=== PATIENT | male | born 1940 | race Caucasian/White ===

== ENCOUNTER 2018-12-22 12:46 | Emergency (ER) | payer MEDICARE, OTHER ==
--- NOTE | 2018-12-22 13:14 | ERPHSYRPT ---
- History of Present Illness Time Seen by Provider: 12/22/18 13:13 Source: patient, family Exam Limitations: no limitations Physician History: 78 y/o white male presents with dizziness. began a couple of days ago. resolved. returned this am. primarily occurs when pt turns head to the right. denies prior episodes. denies cp, denies soa, denies abd pain. no head injury. no new meds. nausea today. no voiting or diarrhea. Timing/Duration: day(s) (a couple of days) Severity: mild Deficits: no difficulties Baseline/Normal Cognition: alert oriented x 3 Current Cognition: alert oriented x 3 Baseline Gait: walks w/o assistance Associated Symptoms: nausea, No vomiting, No numbness/tingling in legs/feet, No ringing in ears, No seizures Allergies/Adverse Reactions: No Known Drug Allergies Allergy (Verified 12/22/18 15:00) Home Medications: Allopurinol 400 mg PO DAILY 04/29/12 [History] Aspirin [Aspir 81] 81 mg PO DAILY 04/29/12 [History] Atenolol/Chlorthalidone [Atenolol-Chlorthal 50-25 Tb] 1 mg PO DAILY 04/29/12 [ History] Atorvastatin Calcium [Lipitor 20MG Tablet] 20 mg PO DAILY 04/29/12 [History] Celecoxib 100 mg [celeBREX 100 MG] 200 mg PO DAILY 04/29/12 [History] Fenofibrate,Micronized 145 mg* [Tricor 145 MG] 145 mg PO DAILY 04/29/12 [History ] Multivitamin [Daily Vitamin] 1 each PO DAILY 04/29/12 [History] Niacin 500 mg [Niaspan 500 mg] 500 mg PO QID 04/29/12 [History] [place]-3 Fatty Acids/Fish Oil [Fish Oil 1,000 mg Capsule] 2 cap PO DAILY [History] Potassium Chloride 20 Meq [Klor-Con 20 MEQ] 20 meq PO DAILY 04/29/12 [History] Tamsulosin HCl 0.4 mg [Flomax 0.4 MG] 0.4 mg PO DAILY 04/29/12 [History] Finasteride 5 mg PO DAILY 12/22/18 [History] Glyburide/Metformin HCl [Glyburide-Metformin 2.5-500 mg] 1 each PO TID 12/22/18 [History] Hx Influenza Vaccination/Date Given: No (NA AT THIS TIME) Hx Pneumococcal Vaccination/Date Given: Yes (2009) - Review of Systems Constitutional: No Symptoms Eyes: No Symptoms Ears, Nose, & Throat: No Symptoms Respiratory: No Symptoms Cardiac: No Symptoms Abdominal/Gastrointestinal: Nausea Genitourinary Symptoms: No Symptoms Musculoskeletal: No Symptoms Skin: No Symptoms Neurological: Dizziness Psychological: No Symptoms Endocrine: No Symptoms Hematologic/Lymphatic: No Symptoms Immunological/Allergic: No Symptoms All Other Systems: Reviewed and Negative - Past Medical History Pertinent Past Medical History: Yes Neurological History: No Pertinent History ENT History: Glaucoma Cardiac History: Hypertension Respiratory History: No Pertinent History Endocrine Medical History: No Pertinent History Musculoskeletal History: Arthritis, Osteoarthritis GI Medical History: No Pertinent History History: Other Psycho-Social History: No Pertinent History Male Reproductive Disorders: No Pertinent History Other Medical History: HX LAMINECTOMY. GOUT - Past Surgical History Past Surgical History: Yes Neuro Surgical History: No Pertinent History Cardiac: No Pertinent History Respiratory: No Pertinent History Gastrointestinal: No Pertinent History Genitourinary: No Pertinent History Musculoskeletal: No Pertinent History Male Surgical History: No Pertinent History - Social History Smoking Status: Former smoker How long have you smoked: 40 YR Exposure to second hand smoke: Yes Drug Use: none - Nursing Vital Signs Nursing Vital Signs: Initial Vital Signs Temperature 97.5 F 12/22/18 12:59 Pulse Rate 55 L 12/22/18 12:59 Respiratory Rate 17 12/22/18 12:59 Blood Pressure 152/84 12/22/18 12:59 O2 Sat by Pulse Oximetry 98 12/22/18 12:59 Pain Scale Pain Intensity 0 - Adonis Coma Scale Best Eye Response ([place]): (4) open spontaneously Best Verbal Response ([place]onis): (5) oriented Best Motor Response ([place]): (6) obeys commands [place] Total: 15 - Physical Exam General Appearance: no apparent distress, alert, anxiety Eye Exam: bilateral eye: normal inspection, PERRL, EOMI Ears, Nose, Throat Exam: normal ENT inspection, TMs normal, pharynx normal, moist mucous membranes, tonsillar exudate Neck Exam: normal inspection, non-tender, supple Respiratory: normal breath sounds, lungs clear, airway intact, No chest tenderness, No respiratory distress, No accessory muscle use Cardiovascular: regular rate/rhythm, normal heart sounds, normal peripheral pulses Gastrointestinal: soft, normal bowel sounds, No tenderness, No guarding Rectal Exam: not done Back Exam: normal inspection, normal range of motion, No CVA tenderness, No vertebral tenderness Extremity Exam: normal inspection, normal range of motion, pelvis stable Mental Status: alert, 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 x 3, 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 Exam: normal hearing, normal speech, PERRL, tongue midline Coordination/Gait: normal finger to nose, normal gait, normal cerebellar function Motor/Sensory: no motor deficit, no sensory deficit, no pronator drift Skin Exam: normal color, warm, dry SpO2 Interpretation: normal O2 Delivery: Room Air - Course Nursing assessment & vital signs reviewed: Yes EKG Interpreted by Me: RATE (55), Sinus Rhythm, NORMAL AXIS, NORMAL INTERVALS, NORMAL QRS, Other (no comparison ekg) Ordered Tests: Active Orders 24 hr Category Date Time Status Clean Catch Urine Specimen STAT Care 12/22/18 13:25 Active EKG-ER Only STAT Care 12/22/18 13:25 Active IV Insertion STAT Care 12/22/18 13:25 Active HEAD WITHOUT CONTRAST [CT] Stat Exams 12/22/18 13:26 Completed CBC W DIFF Stat Lab 12/22/18 13:55 Completed CMP Stat Lab 12/22/18 13:55 Completed CULTURE,URINE Stat Lab 12/22/18 14:30 Received UA W/RFX UR CULTURE Stat Lab 12/22/18 14:30 Completed Medication Summary Generic Name Dose Route Start Last Admin Trade Name Freq PRN Reason Stop Dose Admin Ceftriaxone Sodium/Dextrose 1 g in 50 mls @ 100 mls/hr 12/22/18 15:11 Rocephin 1 Gm-D5w 50 Ml Bag IV 12/22/18 15:40 STAT STA Discontinued Medications Generic Name Dose Route Start Last Admin Trade Name Freq PRN Reason Stop Dose Admin Sodium Chloride 1,000 mls @ 999 mls/hr 12/22/18 13:25 12/22/18 14:19 Sodium Chloride 0.9% 1000 Ml IV 12/22/18 14:25 999 mls/hr .Q1H1M STA Administration Sodium Chloride Confirm 12/22/18 14:16 Sodium Chloride 0.9% 1000 Ml Administered 12/22/18 14:17 Dose 1,000 mls @ ud .ROUTE .STK-MED ONE Meclizine HCl 25 mg 12/22/18 15:11 Antivert 25 Mg PO 12/22/18 15:12 STAT ONE Promethazine HCl 25 mg 12/22/18 13:25 12/22/18 14:19 Phenergan 25 Mg Inj IM 12/22/18 13:26 25 mg STAT ONE Administration Promethazine HCl Confirm 12/22/18 14:16 Phenergan 25 Mg Inj Administered 12/22/18 14:17 Dose 25 mg .ROUTE .[facility]-MED ONE Lab/Rad Data: Laboratory Result Diagrams 12/22/18 13:55 12/22/18 13:55 Laboratory Results 12/22/18 12/22/18 12/22/18 Range/Units 14:30 13:55 13:55 WBC 6.9 (4.0-10.5) K/mm3 RBC 4.14 (4.1-5.6) M/mm3 Hgb 13.3 (12.5-18.0) gm/dl Hct 40.8 L (42-50) % MCV 98.6 (78-100) fl MCH 32.1 H (26-32) pg MCHC 32.6 (32-36) g/dl RDW 14.0 (11.5-14.0) % Plt Count 223 (150-450) K/mm3 MPV 10.5 H (6-9.5) fl Gran % 72.5 H (36.0-66.0) % Eos # (Auto) 0.20 (0-0.5) Absolute Lymphs (auto) 1.35 (1.0-4.6) Absolute Monos (auto) 0.33 (0.0-1.3) Lymphocytes % 19.5 L (24.0-44.0) % Monocytes % 4.8 (0.0-12.0) % Eosinophils % 2.9 (0.00-5.0) % Basophils % 0.3 (0.0-0.4) % Absolute Granulocytes 5.03 (1.4-6.9) Basophils # 0.02 (0-0.4) Sodium 138 (137-145) mmol/L Potassium 4.1 (3.5-5.1) mmol/L Chloride 105 (98-107) mmol/L Carbon Dioxide 23 (22-30) mmol/L Anion Gap 13.9 (5-15) MEQ/L BUN 38 H (9-20) mg/dL Creatinine 1.74 H (0.66-1.25) mg/dL Estimated GFR 40.6 ML/MIN Glucose 215 H (74-106) mg/dL Calcium 10.8 H (8.4-10.2) mg/dL Total Bilirubin 0.70 (0.2-1.3) mg/dL AST 29 (17-59) U/L ALT 28 (0-50) U/L Alkaline Phosphatase 62 (38-126) U/L Serum Total Protein 8.1 (6.3-8.2) g/dL Albumin 4.5 (3.5-5.0) g/dL Urine Color YELLOW (YELLOW) Urine Appearance SLIGHTLY CLOUDY (CLEAR) Urine pH 6.0 (5-6) Ur Specific [place] 1.013 (1.005-1.025) Urine Protein NEGATIVE (Negative) Urine Ketones NEGATIVE (NEGATIVE) Urine Blood NEGATIVE (0-5) [place]/ul Urine Nitrite POSITIVE (NEGATIVE) Urine Bilirubin NEGATIVE (NEGATIVE) Urine Urobilinogen NEGATIVE (0-1) mg/dL Ur Leukocyte Esterase SMALL (NEGATIVE) Urine WBC (Auto) 16-25 (0-5) /HPF Urine RBC (Auto) NONE (0-2) /HPF U Epithel Cells (Auto) NONE (FEW) /HPF Urine Bacteria (Auto) MODERATE (NEGATIVE) /HPF Urine Culture Reflexed YES (NO) Urine Glucose NEGATIVE (NEGATIVE) mg/dL - Progress Progress: improved Progress Note: 12/22/18 14:15 ct head-no intracranial pathology Counseled pt/family regarding: lab results, diagnosis, need for follow-up, rad results - Departure Time of Disposition: 15:12 Departure Disposition: Home Clinical Impression: Dizziness, UTI (urinary tract infection) Condition: Stable Critical Care Time: No Referrals: GARY VITALE MD [Primary Care Provider] - Additional Instructions: drink plenty of fluids. follow up with primary doctor for further management Prescriptions: Ciprofloxacin [Cipro 500 MG] 500 mg PO BID #14 tablet Meclizine HCl 25 mg [Antivert 25 mg] 25 mg PO Q8H PRN #10 tablet PRN Reason: Dizziness
[2018-12-22] MEDS ORDERED: Sodium Chloride 0.9% 1000 ML 1,000 ML IV STA (13:25)
[2018-12-22] MEDS ORDERED: Phenergan 25 MG INJ IM ONE (13:25)
--- NOTE | 2018-12-22 13:54 | XRAY ---
Indication: Dizziness. Multiple contiguous axial images obtained through the head without contrast. Comparison: None Age-appropriate global atrophy. No acute intracranial hemorrhage, abnormal extra-axial fluid collection, or mass effect. Fourth ventricle is midline without hydrocephalus. Dangelo-white matter differentiation preserved. Bony calvarium intact. Partially visualized 2.2 cm right maxillary sinus polyp versus retention cyst. Remaining visualized paranasal sinuses and mastoid air cells are clear. Impression: Normal CT head without contrast exam with incidental right maxillary sinus polyp/retention cyst. CTDI 71.01
[2018-12-22 14:02] LABS: BASOPHIL % 0.3 % (0.0-0.4); Basophil (Absolute #) 0.02 (0-0.4); Eosinophil % 2.9 % (0.00-5.0); Granulocyte Absolute (ANC) 5.03 (1.4-6.9); Granulocytes % 72.5 % (36.0-66.0); Hematocrit 40.8 % (42-50); Hemoglobin 13.3 gm/dl (12.5-18.0); Lymphocyte (Absolute #) 1.35 (1.0-4.6); Lymphocytes % 19.5 % (24.0-44.0); Mean Cell Volume 98.6 fl (78-100); Mean Corpuscular Hemoglobin 32.1 pg (26-32); Mean Corpuscular Hgb Concent. 32.6 g/dl (32-36); Mean Platelet Volume 10.5 fl (6-9.5); Monocyte (Absolute #) 0.33 (0.0-1.3); Monocytes % 4.8 % (0.0-12.0); Platelet Count 223 K/mm3 (150-450); Red Blood Count 4.14 M/mm3 (4.1-5.6); White Blood Count 6.9 K/mm3 (4.0-10.5)
[2018-12-22 14:14] LABS: ALBUMIN 4.5 g/dL (3.5-5.0); ANION GAP 13.9 MEQ/L (5-15); BILIRUBIN,TOTAL 0.7 mg/dL (0.2-1.3); Calcium 10.8 mg/dL (8.4-10.2); Creatinine 1 1.74 mg/dL (0.66-1.25); Potassium 4.1 mmol/L (3.5-5.1); Total Protein 8.1 g/dL (6.3-8.2)
[2018-12-22] MEDS ORDERED: Sodium Chloride 0.9% 1000 ML 1,000 ML ONE (14:16)
[2018-12-22] MEDS ORDERED: Phenergan 25 MG INJ ONE (14:16)
[2018-12-22 14:56] LABS: Appearance SLIGHTLY CLOUDY (CLEAR); Bacteria MODERATE /HPF (NEGATIVE); Bilirubin NEGATIVE (NEGATIVE); Blood NEGATIVE Ery/ul (0-5); Glucose NEGATIVE (NEGATIVE); Ketones NEGATIVE (NEGATIVE); Leukocyte Esterase SMALL (NEGATIVE); Nitrite POSITIVE (NEGATIVE); Protein,Urine Dip NEGATIVE (Negative); Specific Gravity 1.013 (1.005-1.025); Urobilinogen NEGATIVE mg/dL (0-1)
[2018-12-22] MEDS ORDERED: ANTIVERT 25 MG PO ONE (15:11)
[2018-12-22] MEDS ORDERED: ROCEPHIN 1 Gm-D5w 50 ml Bag** 1 G/50 ML IVPB IV STA (15:11)
[2018-12-22 15:13] VITALS: BP 136/73; O2SAT 97
[2018-12-22] MEDS ORDERED: ROCEPHIN 1 Gm-D5w 50 ml Bag** 1 G/50 ML IVPB IV ONE (15:14)
[2018-12-22] MEDS ORDERED: ANTIVERT 25 MG ONE (15:14)
[2018-12-22 16:31] VITALS: PULSE 70
== END 2018-12-22 15:45 | disposition home or self-care (01) ==
LOC: ED 12:46
DX: R42 Dizziness and giddiness (principal); N39.0 Urinary tract infection, site not specified; I10 Essential (primary) hypertension; M19.90 Unspecified osteoarthritis, unspecified site; Z79.899 Other long term (current) drug therapy; M10.9 Gout, unspecified
CPT/HCPCS: 36000; 36415; 70450; 80053; 81001; 85025; 87077; 87086; 87186; 93005; 96365; 96372; 99284; J0696; J2550; A9270-GY

== ENCOUNTER 2019-09-07 10:30 | Emergency (ER) | payer MEDICARE, OTHER ==
[2019-09-07 10:47] VITALS: O2SAT 97
[2019-09-07] MEDS ORDERED: Sodium Chloride 0.9% 1000 ML 1,000 ML IV STA (10:59)
--- NOTE | 2019-09-07 11:03 | ERPHSYRPT ---
- History of Present Illness Time Seen by Provider: 09/07/19 10:45 Source: patient Exam Limitations: no limitations Patient Subjective Stated Complaint: lightheaded, dizzy, feels heart skipping beats Triage Nursing Assessment: Pt walked into the ER, hypertensive, denies pain, hx of dizziness and lightheadedness, no difficulty with strength, A&O, doesn't appear to be in any distress Physician History: the patient is a 71-year-old male who presents with a chief complaint dizziness. Onset was last night. He states he had to go to the bathroom and when he bent over he felt lightheaded and felt as if the room were spinning. While in bed, the dizziness was precipitated by turning over in bed and abated with lying still. He felt the same way specifically whenever he turned his head to the right. His visit here he remains still and I get from a seating to standing position as well his symptoms will completely resolve. Of note, the patient endorses having a similar episode this past summer for which he was seen in the emergency department and diagnosed with vertigo and discharged with a prescription for meclizine. He has secondary complaints feeling his heart "skips a beat" something going on for the past 2-3 weeks. He denies headache, changes in his visual acuity, nausea, vomiting, recent URI/ sinus congestion, chest pain, shortness of breath, syncope or having any recent changes in his blood pressure medications. Timing/Duration: intermittent, other (last night) Modifying Factors: Improves With: immobilization, movement Associated Symptoms: No nausea, No vomiting, No abdominal pain, No shortness of breath, No headaches, No syncope Allergies/Adverse Reactions: No Known Drug Allergies Allergy (Verified 09/07/19 10:51) Home Medications: Allopurinol 400 mg PO DAILY 04/29/12 [History] Aspirin [Aspir 81] 81 mg PO DAILY 04/29/12 [History] Atenolol/Chlorthalidone [Atenolol-Chlorthal 50-25 Tb] 1 mg PO DAILY 04/29/12 [ History] Atorvastatin Calcium [Lipitor 20MG Tablet] 20 mg PO DAILY 04/29/12 [History] Celecoxib 100 mg [celeBREX 100 MG] 200 mg PO DAILY 04/29/12 [History] Fenofibrate,Micronized 145 mg* [Tricor 145 MG] 145 mg PO DAILY 04/29/12 [History ] Multivitamin [Daily Vitamin] 1 each PO DAILY 04/29/12 [History] Niacin 500 mg [Niaspan 500 mg] 500 mg PO QID 04/29/12 [History] [place]-3 Fatty Acids/Fish Oil [Fish Oil 1,000 mg Capsule] 2 cap PO DAILY [History] Potassium Chloride 20 Meq [Klor-Con 20 MEQ] 20 meq PO DAILY 04/29/12 [History] Tamsulosin HCl 0.4 mg [Flomax 0.4 MG] 0.4 mg PO DAILY 04/29/12 [History] Finasteride 5 mg PO DAILY 12/22/18 [History] Glyburide/Metformin HCl [Glyburide-Metformin 2.5-500 mg] 1 each PO TID 12/22/18 [History] Hx Tetanus, Diphtheria Vaccination/Date Given: No Hx Influenza Vaccination/Date Given: No (NA AT THIS TIME) Hx Pneumococcal Vaccination/Date Given: Yes (2009) - Review of Systems Constitutional: No Fever, No Chills, No Weakness, No Weight Loss Eyes: No No Symptoms, No Discharge, No Eye Pain, No Eye Redness, No Foreign Body Sensation Ears, Nose, & Throat: No Ear Pain, No Ear Discharge, No Hearing Changes, No Tinnitus Respiratory: No Symptoms, No Cough, No Cyanosis, No Dyspnea Cardiac: Palpitations, No Chest Pain, No Syncope, No Orthopnea, No PND Abdominal/Gastrointestinal: No Symptoms Skin: No Symptoms Neurological: Dizziness, Vertigo, No Focal Weakness, No Gait Changes, No Headache, No Irritability, No Parasthesia, No Sensory Changes, No Speech Changes , No Tremors Psychological: No Symptoms All Other Systems: Reviewed and Negative - Past Medical History Pertinent Past Medical History: Yes Neurological History: No Pertinent History ENT History: Glaucoma Cardiac History: Hypertension Respiratory History: No Pertinent History Endocrine Medical History: No Pertinent History Musculoskeletal History: Arthritis, Osteoarthritis GI Medical History: No Pertinent History History: Other Psycho-Social History: No Pertinent History Male Reproductive Disorders: No Pertinent History Other Medical History: HX LAMINECTOMY. 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 - Social History Smoking Status: Former smoker How long have you smoked: 40 YR Exposure to second hand smoke: No Drug Use: none Patient Lives Alone: No - Nursing Vital Signs Nursing Vital Signs: Initial Vital Signs Temperature 97.5 F 09/07/19 10:37 Pulse Rate 61 09/07/19 10:37 Blood Pressure 151/88 09/07/19 10:37 O2 Sat by Pulse Oximetry 97 09/07/19 10:37 Pain Scale Pain Intensity 0 - Physical Exam General Appearance: no apparent distress, alert Eye Exam: PERRL/EOMI, eyes nml inspection, No scleral icterus, No pale conjunctivae, No photophobia, No EOM palsy/anisocoria Ears, Nose, Throat Exam: normal ENT inspection, pharynx normal, moist mucous membranes, No TM abnormal (R), No TM abnormal (L), No pharyngeal erythema Neck Exam: non-tender, supple, other (No vertebral bruit), No carotid bruit, No JVD, No limited range of motion, No midline tenderness Respiratory Exam: normal breath sounds, lungs clear, airway intact, No chest tenderness, No respiratory distress Cardiovascular Exam: regular rate/rhythm, normal heart sounds, normal peripheral pulses, capillary refill <2 sec Gastrointestinal/Abdomen Exam: soft, normal bowel sounds, No tenderness, No distention, No mass Male Genitalia Exam: other (Deferred) Rectal Exam: deferred Back Exam: normal inspection Extremity Exam: normal inspection Neurologic Exam: alert, oriented x 3, cooperative, 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 as tested, normal mood/affect, nml cerebellar function, sensation nml, other (No nystagmus) , No motor deficits, No sensory deficit, No disoriented, No confusion, No agitation, No motor weakness, No facial droop, No slurred speech, No aphasia, No EOM palsy Skin Exam: normal color, warm, dry, No rash, No petechiae, No jaundice, No cyanosis, No jaundice SpO2 Interpretation: normal SpO2: 97 O2 Delivery: Room Air - Course Nursing assessment & vital signs reviewed: Yes EKG Interpreted by Me: RATE, Sinus Rhythm, Sinus [place], NORMAL QRS (QT/QTc 424/ 420 ms), NORMAL ST-T, Other Ordered Tests: Medication Summary Discontinued Medications Generic Name Dose Route Start Last Admin Trade Name Lois PRN Reason Stop Dose Admin Sodium Chloride 1,000 mls @ 999 mls/hr 09/07/19 10:59 09/07/19 13:20 Sodium Chloride 0.9% 1000 Ml IV 09/07/19 11:59 Infused .Q1H1M STA Infusion Sodium Chloride Confirm 09/07/19 11:17 Sodium Chloride 0.9% 1000 Ml Administered 09/07/19 11:18 Dose 1,000 mls @ ud .ROUTE .K-MED ONE Lab/Rad Data: Laboratory Result Diagrams 09/07/19 10:59 09/07/19 11:30 Laboratory Results 09/07/19 09/07/19 Range/Units 11:30 10:59 WBC 6.1 (4.0-10.5) K/mm3 RBC 3.78 L (4.1-5.6) M/mm3 Hgb 12.8 (12.5-18.0) gm/dl Hct 38.1 L (42-50) % MCV 100.8 H (78-100) fl MCH 33.9 H (26-32) pg MCHC 33.6 (32-36) g/dl RDW 13.8 (11.5-14.0) % Plt Count 209 (150-450) K/mm3 MPV 11.0 H (6-9.5) fl Gran % 66.6 H (36.0-66.0) % Eos # (Auto) 0.19 (0-0.5) Absolute Lymphs (auto) 1.33 (1.0-4.6) Absolute Monos (auto) 0.50 (0.0-1.3) Lymphocytes % 21.8 L (24.0-44.0) % Monocytes % 8.2 (0.0-12.0) % Eosinophils % 3.1 (0.00-5.0) % Basophils % 0.3 (0.0-0.4) % Absolute Granulocytes 4.05 (1.4-6.9) Basophils # 0.02 (0-0.4) Sodium 143 (137-145) mmol/L Potassium 4.1 (3.5-5.1) mmol/L Chloride 110 H (98-107) mmol/L Carbon Dioxide 24 (22-30) mmol/L Anion Gap 13.8 (5-15) MEQ/L BUN 32 H (9-20) mg/dL Creatinine 1.51 H (0.66-1.25) mg/dL Estimated GFR 47.7 ML/MIN Glucose 179 H (74-106) mg/dL Calcium 10.6 H (8.4-10.2) mg/dL Troponin I < 0.012 (0.000-0.034) ng/mL - Progress Progress: improved Progress Note: 09/07/19 12:08 I reviewed the patient's EMR and appears he had a head CT without contrast dated November 2018 less than normal limits with no evidence of intracranial hemorrhage, mass or CVA. His kidney function currently is his baseline kidney function which reflects his baseline CKD, in addition to his serum calcium is being above high normal. He does have evidence of an elevated MCV but there is no anemia. 09/07/19 12:[address] Vitale' office and attempted to speak with him about the patient' s CKD and what appears to be mild hypercalcemia, but he was out of the office today. I did manage to schedule a follow-up appointment for him to be evaluated on 09/09/19. Discussed with : Rashad (Discussed with Dr Vitale' nurse/clinic) Counseled pt/family regarding: lab results, diagnosis, need for follow-up - Departure Departure Disposition: Home Clinical Impression: Dizziness, PVC (premature ventricular contraction), CKD (chronic kidney disease ), Hypercalcemia Condition: Stable Critical Care Time: No Referrals: GARY VITALE MD [Primary Care Provider] - Instructions: Dizziness, Nonvertigo, (DC) Additional Instructions: Please follow-up with Dr. Vitale on 09/09/19 at 1:30 pm. Plan of Treatment: Nontoxic in appearanc. Dizziness seems peripheral and currently a low suspicion for CVA, TIA, and suspect a vestibular neuritis or BPPV given his symptoms started while he was in bed/getting out of bed but patient does not have nystagmus which argues against BPPV. Labs, EKG, and EMR reviewed. I'll have the patient f/u with his PCP, specifically because his serum calcium is mildly elevated to have PCP follow-up on PTH or r/o multiple myeloma, etc. if he thinks this is necessary. Prescriptions: Meclizine HCl 25 mg [Antivert 25 mg] 25 mg PO Q6-8HPRN PRN #30 tablet PRN Reason: Dizziness
[2019-09-07] MEDS ORDERED: Sodium Chloride 0.9% 1000 ML 1,000 ML ONE (11:17)
[2019-09-07 11:33] LABS: Absolute Neutrophil Ct (ANC) 4.05 (1.4-6.9); BASOPHIL % 0.3 % (0.0-0.4); Basophil (Absolute #) 0.02 (0-0.4); Eosinophil % 3.1 % (0.00-5.0); Eosinophil (Absolute #) 0.19 (0-0.5); Hematocrit 38.1 % (42-50); Hemoglobin 12.8 gm/dl (12.5-18.0); Lymphocyte (Absolute #) 1.33 (1.0-4.6); Lymphocytes % 21.8 % (24.0-44.0); Mean Cell Volume 100.8 fl (78-100); Mean Corpuscular Hemoglobin 33.9 pg (26-32); Mean Corpuscular Hgb Concent. 33.6 g/dl (32-36); Monocytes % 8.2 % (0.0-12.0); Neutrophil % 66.6 % (36.0-66.0); Platelet Count 209 K/mm3 (150-450); Red Blood Count 3.78 M/mm3 (4.1-5.6); Red Cell Distribution Width 13.8 % (11.5-14.0); White Blood Count 6.1 K/mm3 (4.0-10.5)
[2019-09-07 11:57] LABS: ANION GAP 13.8 MEQ/L (5-15); BLOOD UREA NITROGEN 32 mg/dL (9-20); CHLORIDE 110 mmol/L (98-107); Calcium 10.6 mg/dL (8.4-10.2); Carbon Dioxide 24 mmol/L (22-30); Creatinine 1 1.51 mg/dL (0.66-1.25); Glucose 179 mg/dL (74-106); Potassium 4.1 mmol/L (3.5-5.1); SODIUM 143 mmol/L (137-145); TROPONIN < 0.012 ng/mL (0.000-0.034)
[2019-09-07 12:05] VITALS: BP 150/91; PULSE 66
== END 2019-09-07 13:21 | disposition home or self-care (01) ==
LOC: ED 10:30
DX: R42 Dizziness and giddiness (principal); I49.3 Ventricular premature depolarization; N18.9 Chronic kidney disease, unspecified; E83.52 Hypercalcemia; Z79.899 Other long term (current) drug therapy; I10 Essential (primary) hypertension
CPT/HCPCS: 36415; 80048; 84484; 85025; 93005; 93041; 96360; 99284

== ENCOUNTER 2023-01-13 08:09 | Day surgery (SDC) | payer MEDICARE, OTHER ==
--- NOTE | 2023-01-13 07:53 | HP ---
DATE OF SURGERY: 01/13/2023 HISTORY OF PRESENT ILLNESS: The patient is an 83-year-old with epigastric pain, nausea and vomiting. Ultrasound showed cholelithiasis. He was referred for consideration of cholecystectomy. PAST MEDICAL HISTORY: Gout, osteoarthritis, renal insufficiency, diabetes mellitus type II, benign prostatic hypertrophy, Herpes zoster in the past. He had urinary tract infections in the past. PAST SURGICAL HISTORY: Colonoscopy. MEDICATIONS: Multivitamins, vitamin D3, fish oil, Jardiance, Tamsulosin, finasteride, allopurinol, atenolol, Klor-Con, glyburide/metformin, Fenofibrate, atorvastatin. ALLERGIES: NKDA. FAMILY HISTORY: Diabetes. SOCIAL HISTORY: Former smoking. No alcohol abuse. REVIEW OF SYSTEMS: Fourteen systems reviewed. No chest pain or palpitations. Other systems negative or noncontributory as above and per preadmission questionnaire. PHYSICAL EXAMINATION: Height 6' 2". BMI 30. GENERAL: No acute distress. HEENT: Sclerae nonicteric. Mucous membranes moist. EOMI. NECK: No JVD. CHEST: Equal excursion, nonlabored breathing. CVS: Regular rate and rhythm. ABDOMEN: Soft. No peritoneal signs. EXTREMITIES: No significant edema. NEURO: Alert, oriented, moving extremities symmetrically. PSYCH: Appropriate mood and affect. SKIN: Dry. IMPRESSION: Acute exacerbation chronic cholecystitis, symptomatic cholelithiasis. I feel the patient would benefit from cholecystectomy. He was shown the risk sheet and gallbladder pamphlet explained the procedure in detail including but not limited to bleeding or infection, risk of trocar injury or hernia, risk of bile leak, bile duct injury, retained stone or sludge possibly requiring further procedure either open or ERCP, general risk of anesthesia, deep venous thrombosis, pulmonary embolism, pneumonia, perioperative risk of aches, pains, bloating, constipation and/or loose stools possibly even chronic in nature. He understands and agrees to the planned procedure, will proceed with laparoscopic cholecystectomy with possible open when OR time available.
[~2023-01-13 08:09] MED LIST: Sensorcaine 0.25% 10 ML ONE
[2023-01-13] MEDS ORDERED: Lactated Ringers 1,000 ML IV SCH (08:30)
[2023-01-13] MEDS ORDERED: MEFOXIN 2 GM PREMIX** 2 GM/50 ML ML IV SCH (09:00)
[2023-01-13 09:10] LABS: Hematocrit 42.5 % (42-50); Hemoglobin 13.8 g/dL (12.5-18.0); Mean Cell Volume 100.2 fL (78-100); Mean Corpuscular Hemoglobin 32.5 pg (26-32); Mean Corpuscular Hgb Concent. 32.5 g/dL (32-36); Mean Platelet Volume 10.5 fL (7.5-11.0); Platelet Count 242 x10^3/uL (150-450); Red Blood Count 4.24 x10^6/uL (4.1-5.6); Red Cell Distribution Width 13.6 % (11.5-14.0); White Blood Count 4.7 x10^3/uL (4.0-10.5)
[2023-01-13 09:18] LABS: ANION GAP 12.9 MEQ/L (5-15); BILIRUBIN,TOTAL 0.6 mg/dL (0.2-1.3); Calcium 9.4 mg/dL (8.4-10.2); Creatinine 1 1.66 mg/dL (0.66-1.25); EST GLOMERULAR FILTRATION RATE 42.4 ML/MIN; Potassium 4.1 mmol/L (3.5-5.1); Total Protein 7.3 g/dL (6.3-8.2)
[2023-01-13] MEDS ORDERED: Xylocaine-Mpf 2% 5 Ml Vial ONE (09:58)
[2023-01-13] MEDS ORDERED: SUBLIMAZE 100 MCG/2 ML ONE (09:58)
[2023-01-13] MEDS ORDERED: Zemuron 100 MG/10 ML ONE (09:58)
[2023-01-13] MEDS ORDERED: BRIDION 200MG/2ML IV ONE (09:58)
[2023-01-13] MEDS ORDERED: Decadron 4 MG INJ ONE (09:58)
[2023-01-13] MEDS ORDERED: Zofran 4 MG/2 ML VIAL ONE (09:58)
[2023-01-13] MEDS ORDERED: DIPRIVAN 200 MG/20 ML IV ONE (09:58)
[2023-01-13] MEDS ORDERED: Magnesium Sulfate 1 GM/2 ML VIAL ONE (11:20)
[2023-01-13] MEDS ORDERED: OFIRMEV 100 ML IV ONE (11:20)
[2023-01-13] MEDS ORDERED: Ephedrine Sulfate 50 MG/ML ONE (11:31)
[2023-01-13] MEDS ORDERED: ROBINUL ONE (11:35)
[2023-01-13] MEDS ORDERED: Ketamine HCl 50 MG/ML ONE (11:39)
[2023-01-13 13:27] VITALS: BP 142/65; PULSE 58; O2SAT 92
--- NOTE | 2023-01-13 15:32 | OP ---
SURGERY DATE/TIME: 01/13/2023 1118 PREOPERATIVE DIAGNOSIS: Acute exacerbation of chronic cholecystitis, symptomatic cholelithiasis. POSTOPERATIVE DIAGNOSIS: Acute exacerbation of chronic cholecystitis, symptomatic cholelithiasis. PROCEDURE: Laparoscopic cholecystectomy. SURGEON: Dr. Kulwinder Herman. ANESTHESIA: General. ESTIMATED BLOOD LOSS: Minimal. INDICATIONS: As noted above. Risks and benefits explained in detail but not limited to and consent obtained. DESCRIPTION OF PROCEDURE AND FINDINGS: The patient was taken to the operating room. General anesthesia induced. Abdomen prepped and draped in usual sterile fashion. After official time out and no disagreement with planned procedure, a transverse incision made in the supraumbilical area. Fascia grasped, pulled upward. Veress needle inserted and tested with saline. Pneumoperitoneum accomplished insufflating opening pressure of 0-15. A 5 mm bladeless port and camera were inserted without difficulty followed by two - 5 mm right upper quadrant ports and 11 mm epigastric port. The gallbladder is long and distended. It had some chronic inflammation. Dissected posterior, lateral to anterior fashion slowly and carefully the cystic duct and infundibular junction slowly carefully dissected from posterior lateral to anterior fashion. Slowly and carefully the cystic duct and infundibular area well skeletonized until the critical view was obtained both anteriorly and posteriorly. Once this is accomplished, the cystic artery clipped directly on the gallbladder wall. The cystic duct was clipped at the infundibulum. The gallbladder is slowly and carefully dissected free from its dense attachments to the liver bed clipping additional oozing cystic artery/cystic vein as necessary directly on the wall. Just prior to releasing from final attachments to the anterior edge of the liver, the liver bed re-inspected. Clips noted in place in the cystic duct and cystic artery stumps. No signs of any active bleeding or bile leakage. It was felt there is no benefit of drain placement. The gallbladder had been removed. The fascia defect at 10/11 site closed with puncture closure device with #1 Vicryl. Pneumoperitoneum decompressed. Copious amount of irrigation accomplished lateral to the liver and subhepatic space irrigating clear. The wound is irrigated out. Skin incision closed with 4-0 Vicryl. Steri-Strips and sterile dressing applied. The patient tolerated the procedure well. There were no immediate complications. Findings discussed with the family out in the waiting area.
== END 2023-01-13 13:40 | disposition home or self-care (01) ==
LOC: SDC 08:09
PROVIDERS: ATTEND Surgery
DX: K80.10 Calculus of gallbladder with chronic cholecystitis without obstruction (principal); E11.9 Type 2 diabetes mellitus without complications; N18.9 Chronic kidney disease, unspecified
CPT/HCPCS: 36415; 80053; 82947; 85027; 93005; 99100; J0694; J1100; J2405; J2704; J3010; J3475

== ENCOUNTER 2023-04-25 22:06 | Emergency (ER) | payer MEDICARE, OTHER ==
[2023-04-25 22:45] VITALS: TEMP 96.7; O2SAT 96
[2023-04-25 22:56] LABS: Absolute Neutrophil Ct (ANC) 5.39 x10^3/uL (1.4-6.9); BASOPHIL % 0.5 % (0.0-0.4); Basophil (Absolute #) 0.04 x10^3/uL (0-0.4); Eosinophil % 1.7 % (0.00-5.0); Eosinophil (Absolute #) 0.13 x10^3/uL (0-0.5); Hematocrit 39.5 % (42-50); Hemoglobin 11.6 g/dL (12.5-18.0); IMMATURE GRAN # 0.14 x10^3u/L (0.00-0.03); IMMATURE GRAN % 1.9 % (0.00-0.4); Lymphocyte (Absolute #) 1.08 x10^3/uL (1.0-4.6); Lymphocytes % 14.5 % (24.0-44.0); Mean Corpuscular Hemoglobin 32.3 pg (26-32); Mean Corpuscular Hgb Concent. 29.4 g/dL (32-36); Mean Platelet Volume 10.4 fL (7.5-11.0); Monocyte (Absolute #) 0.67 x10^3/uL (0.0-1.3); Neutrophil % 72.4 % (36.0-66.0); Platelet Count 328 x10^3/uL (150-450); Red Blood Count 3.59 x10^6/uL (4.1-5.6); Red Cell Distribution Width 13.9 % (11.5-14.0); White Blood Count 7.5 x10^3/uL (4.0-10.5)
--- NOTE | 2023-04-25 22:58 | ERPHSYRPT ---
- History of Present Illness Time Seen by Provider: 04/25/23 22:48 Source: patient, family Exam Limitations: no limitations Patient Subjective Stated Complaint: pt states he has been running low bp at home. has been 80/40 with increased heart rate at times. pt has new diagnoses of afib while he was in hospital for a week in [place]. admitted on 04/15 for urosepsis and new onset afib. currently on infusions of ertopenem for obstructive uropathy, bacterial e coli, bacteria esbl Triage Nursing Assessment: pt pt alert and oriented, answer questions approp. pt ambulates into room with steady gait noted. respirations nonlabored. lungs cta. skin warm and dry. heart rate irregular, afib on monitor. Physician History: pt states he has been running low bp at home. has been 80/40 with increased heart rate at times. pt has new diagnoses of afib while he was in hospital for a week in [place]. admitted on 04/15 for urosepsis and new onset afib. currently on infusions of ertopenem for obstructive uropathy, bacterial e coli, bacteria esbl Timing/Duration: today Associated Symptoms: weakness Allergies/Adverse Reactions: No Known Drug Allergies Allergy (Verified 04/25/23 22:15) Home Medications: Allopurinol 300 mg PO DAILY 04/29/12 [History] Aspirin [Aspir 81] 81 mg PO DAILY 04/29/12 [History] Atorvastatin Calcium [Lipitor 20MG Tablet] 20 mg PO DAILY 04/29/12 [History] Fenofibrate,Micronized 145 mg* [Tricor 145 MG] 145 mg PO DAILY 04/29/12 [History] Multivitamin [Daily Vitamin] 1 each PO DAILY 04/29/12 [History] Niacin 500 mg [Niaspan 500 mg] 500 mg PO QID 04/29/12 [History] [place]-3 Fatty Acids/Fish Oil [Fish Oil 1,000 mg Capsule] 2 cap PO DAILY 04/29/12 [History] Potassium Chloride 20 Meq [Klor-Con 20 MEQ] 20 meq PO DAILY 04/29/12 [History] Tamsulosin HCl 0.4 mg [Flomax 0.4 MG] 0.4 mg PO DAILY 04/29/12 [History] Finasteride 5 mg PO DAILY 12/22/18 [History] Glyburide/Metformin HCl [Glyburide-Metformin 2.5-500 mg] 1 each PO TID 12/22/18 [History] Atenolol/Chlorthalidone [Atenolol-Chlorthalidone 100-25] 1 each PO DAILY 01/07/23 [History] Cholecalciferol (Vitamin D3) [Vitamin D3] 1,000 unit PO DAILY 01/07/23 [History] Empagliflozin [Jardiance] 25 mg PO DAILY 01/07/23 [History] Hx Tetanus, Diphtheria Vaccination/Date Given: No Hx Influenza Vaccination/Date Given: No (NA AT THIS TIME) Hx Pneumococcal Vaccination/Date Given: Yes Immunizations Up to Date: No Travel Risk - International Travel Have you traveled outside of the country in past 3 weeks: No - Coronavirus Screening Are you exhibiting any of the following symptoms?: No Close contact with a COVID-19 positive Pt in past 14-21 Days: No - Vaccine Status Have you recieved a Covid-19 vaccination: Yes 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: [email or web address] - Vaccination Dates Date of 2cond Vaccination (if applicable): 2020 - Review of Systems Constitutional: Weakness, No Fever, No Chills Eyes: No Symptoms Ears, Nose, & Throat: No Symptoms Respiratory: No Cough, No Dyspnea Cardiac: No Chest Pain, No Edema, No Syncope Abdominal/Gastrointestinal: No Abdominal Pain, No Nausea, No Vomiting, No Diarrhea Genitourinary Symptoms: No Dysuria Musculoskeletal: No Back Pain, No Neck Pain Skin: No Rash Neurological: No Dizziness, No Focal Weakness, No Sensory Changes Psychological: No Symptoms Endocrine: No Symptoms All Other Systems: Reviewed and Negative - Past Medical History Pertinent Past Medical History: Yes Neurological History: No Pertinent History ENT History: Glaucoma Cardiac History: Arrhythmia, High Cholesterol, Hypertension Respiratory History: No Pertinent History Endocrine Medical History: Diabetes Type II Musculoskeletal History: Arthritis, Osteoarthritis GI Medical History: Gallbladder Disease History: Other Psycho-Social History: No Pertinent History Male Reproductive Disorders: Prostate Problems Other Medical History: HX LAMINECTOMY. GOUT. recent diagnosis urosepsis with esbl. 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 - Social History Smoking Status: Former smoker How long have you smoked: 40 YR Exposure to second hand smoke: No Drug Use: none Patient Lives Alone: No - Nursing Vital Signs Nursing Vital Signs: Initial Vital Signs Temperature 96.7 F 04/25/23 22:16 Pulse Rate 111 H 04/25/23 22:16 Respiratory Rate 18 04/25/23 22:16 Blood Pressure 112/82 04/25/23 22:16 O2 Sat by Pulse Oximetry 96 04/25/23 22:16 Pain Scale Pain Intensity 0 - Physical Exam General Appearance: no apparent distress, alert Eye Exam: PERRL/EOMI, eyes nml inspection Ears, Nose, Throat Exam: normal ENT inspection, TMs normal, pharynx normal, moist mucous membranes Neck Exam: normal inspection, non-tender, supple, full range of motion Respiratory Exam: normal breath sounds, lungs clear, No respiratory distress Cardiovascular Exam: regular rate/rhythm, normal heart sounds, normal peripheral pulses Gastrointestinal/Abdomen Exam: soft, normal bowel sounds, No tenderness, No mass Back Exam: normal inspection, normal range of motion, No CVA tenderness, No vertebral tenderness Extremity Exam: normal inspection, normal range of motion, pelvis stable Neurologic Exam: alert, oriented x 3, cooperative, normal mood/affect, nml cerebellar function, nml station & gait, sensation nml, No motor deficits Skin Exam: normal color, warm, dry, No rash Lymphatic Exam: No adenopathy SpO2: 96 - Course Nursing assessment & vital signs reviewed: Yes EKG Interpreted by Me: A-fib Rhythm Strip: Atrial Fibrillation Ordered Tests: Active Orders 24 hr Category Date Time Status EKG-ER Only STAT Care 04/25/23 22:34 Active CBC W DIFF Stat Lab 04/25/23 22:50 Completed CMP Stat Lab 04/25/23 22:50 Completed MAGNESIUM Stat Lab 04/25/23 22:50 Completed NT PRO BNPII Stat Lab 04/25/23 22:50 Completed TROPONIN Stat Lab 04/25/23 22:50 Completed Lab/Rad Data: Laboratory Result Diagrams 04/25/23 22:50 04/25/23 22:50 Laboratory Results 04/25/23 04/25/23 Range/Units 22:50 22:50 WBC 7.5 (4.0-10.5) x10^3/uL RBC 3.59 L (4.1-5.6) x10^6/uL Hgb 11.6 L (12.5-18.0) g/dL Hct 39.5 L (42-50) % MCV 110.0 H D (78-100) fL MCH 32.3 H (26-32) pg MCHC 29.4 L (32-36) g/dL RDW 13.9 (11.5-14.0) % Plt Count 328 (150-450) x10^3/uL MPV 10.4 (7.5-11.0) fL Gran % 72.4 H (36.0-66.0) % Immature Gran % (Auto) 1.9 H (0.00-0.4) % Nucleat RBC Rel Count 0.0 (0.00-0.1) % Eos # (Auto) 0.13 (0-0.5) x10^3/uL Immature Gran # (Auto) 0.14 H (0.00-0.03) x10^3u/L Absolute Lymphs (auto) 1.08 (1.0-4.6) x10^3/uL Absolute Monos (auto) 0.67 (0.0-1.3) x10^3/uL Absolute Nucleated RBC 0.00 (0.00-0.01) x10^3u/L Lymphocytes % 14.5 L (24.0-44.0) % Monocytes % 9.0 (0.0-12.0) % Eosinophils % 1.7 (0.00-5.0) % Basophils % 0.5 (0.0-0.4) % Absolute Granulocytes 5.39 (1.4-6.9) x10^3/uL Basophils # 0.04 (0-0.4) x10^3/uL Sodium 138 (137-145) mmol/L Potassium 4.6 (3.5-5.1) mmol/L Chloride 106 (98-107) mmol/L Carbon Dioxide 24 (22-30) mmol/L Anion Gap 12.4 (5-15) MEQ/L BUN 53 H (9-20) mg/dL Creatinine 1.71 H (0.66-1.25) mg/dL Estimated GFR 40.9 ML/MIN Glucose 232 H (74-106) mg/dL Calcium 8.4 (8.4-10.2) mg/dL Magnesium 1.6 (1.6-2.3) mg/dL Total Bilirubin 0.60 (0.2-1.3) mg/dL AST 37 (17-59) U/L ALT 53 H (0-50) U/L Alkaline Phosphatase 176 H (38-126) U/L Troponin I < 0.012 (0.000-0.034) ng/mL NT-Pro-B Natriuret Pep 4990 (<300) pg/mL Serum Total Protein 6.0 L (6.3-8.2) g/dL Albumin 2.7 L (3.5-5.0) g/dL - Progress Progress: improved Counseled pt/family regarding: lab results, diagnosis, need for follow-up Medical Desision Making - Diagnostic Testing Diagnostic test were ordered, analyzed, and reviewed by me: Yes - Risk of complications Low Risk: Low risk of morbidity from additional dx testing or treatment - Departure Departure Disposition: Home Clinical Impression: Hypotensive episode, History of ESBL E. coli infection CKD (chronic kidney disease) Qualifiers: Chronic kidney disease stage: stage 3 (moderate) Chronic kidney disease stage 3 subtype: stage 3b (GFR 30-44) Qualified Code(s): N18.32 - Chronic kidney disease, stage 3b Atrial fibrillation Qualifiers: Atrial fibrillation type: permanent Qualified Code(s): I48.21 - Permanent atrial fibrillation Condition: Stable Critical Care Time: No Referrals: GARY VITALE MD [Primary Care Provider] - Follow up/PCP as directed Instructions: Orthostatic Hypotension (DC), Low Blood Pressure (DC) Additional Instructions: Discharge/Care Plan PHILLIP BURNETT was seen on 04/25/23 in the Emergency Room. The patient was counseled regarding Diagnosis,Lab results, Imaging studies, need for follow up and when to return to the Emergency Room. Prescriptions given: Discharge Note I have spoken with the patient and/or caregivers. I have explained the patient's condition, diagnosis and treatment plan based on the information available to me at this time. I have answered the patient's and/or caregiver's questions and addressed any concerns. The patient and/or caregivers have as good understanding of the patient's diagnosis, condition and treatment plan as can be expected at this point. The vital signs have been stable. The patient's condition is stable and appropriate for discharge from the emergency department. The patient will pursue further outpatient evaluation with the primary care phys ician or other designated or consulting physician as outlined in the discharge instructions. The patient and/or caregivers are agreeable to this plan of care and follow-up instructions have been explained in detail. The patient and/or caregivers have received these instruction. The patient/and or caregivers are aware that any significant change in condition or worsening of symptoms should prompt an immediate return to this or the closest emergency department or call 911. PHILLIP BURNETT was seen on 04/25/23 n the Emergency Room. At that time you were treated for an emergent condition, during your visit Laboratory, Radiology and/or other procedures may have been ordered. It is very important that you follow-up with your Primary Care Physician GARY VITALE within the next 24- 48 hours to review your Emergency Room visit and the final results of testing that was ordered. Some test results such as Urine Cultures, Blood Cultures, and other cultures if ordered will not be finalized for 24-48 hours. If you do not have a Primary Care Provider please call the medical records department at [phone] ext [phone] to obtain a copy of your results or you may sign into our patient portal to obtain these results by visiting us @ [email or web address] and completing the following steps: 1. Click on the Patient Portal link 2. Click the Patient Self Enrollment Link to complete the enrollment form and entering your 3. Once the enrollment form is completed you will receive an email with a temporary ID and password at the email address you provided. 4. Next choose a user name and password. Your user name must be at least 4 characters long and your password must be at least 4 characters long. 5. Choose a security question from the list and provide your answer to the que stion. If you already have signed into the Health Portal you may access your Health [place] re Information 21/04 by the following steps: 1. Login to our website @ [email or web address] 2. Enter your original user name and password. FAQS The [facility] Health Portal is an online tool that contains your Lab Results, Radiology Reports, Visit History, Discharge Instructions and Health Summary Lab and Radiology Results will not be available for 72 hours on the portal. The Portal is a secure site, passwords are encryted and URLs are re-written so they cannot be copied and pasted. You and authorized family members are the only ones who can access your Portal. Also there is a timeout feature that protects your information if you leave the Portal page open. If you have technical difficulty please use the Contact Us link on the page this will allow you to submit any questions you have regarding the Portal or you may contact the Medical Record Department at [phone] ext [phone].
[2023-04-25 23:13] LABS: ALBUMIN 2.7 g/dL (3.5-5.0); ALKALINE PHOSPHATASE 176 U/L (38-126); ANION GAP 12.4 MEQ/L (5-15); BLOOD UREA NITROGEN 53 mg/dL (9-20); CHLORIDE 106 mmol/L (98-107); Calcium 8.4 mg/dL (8.4-10.2); Carbon Dioxide 24 mmol/L (22-30); Creatinine 1 1.71 mg/dL (0.66-1.25); EST GLOMERULAR FILTRATION RATE 40.9 ML/MIN; Glucose 232 mg/dL (74-106); MAGNESIUM 1.6 mg/dL (1.6-2.3); Potassium 4.6 mmol/L (3.5-5.1); SGOT/AST 37 U/L (17-59); SGPT/ALT 53 U/L (0-50); SODIUM 138 mmol/L (137-145)
[2023-04-25 23:23] LABS: NT PRO BNPII 4990 pg/mL (<300)
[2023-04-25 23:46] LABS: TROPONIN < 0.012 ng/mL (0.000-0.034)
[2023-04-26 00:21] VITALS: RESP 16
[2023-04-26 00:24] VITALS: BP 98/73; PULSE 104
== END 2023-04-26 00:16 | disposition home or self-care (01) ==
LOC: ED 22:06
DX: I95.9 Hypotension, unspecified (principal); I48.21 Permanent atrial fibrillation; I12.9 Hypertensive chronic kidney disease with stage 1 through stage 4 chronic kidney disease, or unspecified chronic kidney disease; E11.22 Type 2 diabetes mellitus with diabetic chronic kidney disease; N18.32 Chronic kidney disease, stage 3b; Z87.440 Personal history of urinary (tract) infections; E78.5 Hyperlipidemia, unspecified; Z79.84 Long term (current) use of oral hypoglycemic drugs; Z79.899 Other long term (current) drug therapy
CPT/HCPCS: 36415; 80053; 83735; 83880; 84484; 85025; 93005; 96365; 99211; 99283; J1335; J1642